=== PATIENT | male | born 1960 | race Caucasian/White ===

== ENCOUNTER 2019-11-01 20:07 | Emergency (ER) | payer OTHER ==
[2019-11-01] MEDS ORDERED: Bacitracin Oint 1 GM U/D Packet TOP ONE (20:50)
[2019-11-01] MEDS ORDERED: Bacitracin Oint 1 GM U/D Packet ONE (20:59)
[2019-11-01] MEDS ORDERED: Diphtheria,Pertussis(Acell),Tetanus Vaccine 0.5 ML Syringe IM ONE (21:20)
--- NOTE | 2019-11-01 21:26 | EDM.PDOC ---
ED HPI GENERAL MEDICAL PROBLEM - General Chief Complaint: Skin Complaint Stated Complaint: Fish hook in thumb Time Seen by Provider: 11/01/19 20:45 Source of Information: Reports: Patient, RN, RN Notes Reviewed History Limitations: Reports: No Limitations - History of Present Illness INITIAL COMMENTS - FREE TEXT/NARRATIVE: Prior to arrival patient pushed his fishhook through his distal aspect of his left thumb. Patient did trim away the lure and attempt to try to remove the hook himself. He was unsuccessful. Patient does not recall last tetanus shot. Onset: Today, Sudden Onset Date: 11/01/19 Onset Time: 19:30 Location: Reports: Upper Extremity, Left (Left thumb) Quality: Reports: Ache, Throbbing Severity: Mild Improves with: Reports: None Worsens with: Reports: Movement Context: Reports: Trauma Associated Symptoms: Reports: No Other Symptoms Treatments [employer]: Reports: Other (see below) (Attempted removal) Left Finger-Thumb Pain Score (Numeric/FACES): 3 - Related Data Allergies Allergy/AdvReac Type Severity Reaction Status Date / Time No Known Allergies Allergy Verified 11/01/19 20:33 Home Meds: Home Meds lisinopriL [Lisinopril] 20 mg PO DAILY 11/01/19 [History] Past Medical History Cardiovascular History: Reports: Hypertension - Past Surgical History HEENT Surgical History: Reports: BASIA Social & Family History - Tobacco Use Smoking Status *Q: Current Some Day Smoker Years of Tobacco use: 40 Packs/Tins Daily: 0 Used Tobacco, but Quit: No Second Hand Smoke Exposure: Yes - Caffeine Use Caffeine Use: Reports: Coffee - Alcohol Use Days Per Week of Alcohol Use: 2 Number of Drinks Per Day: 4 Total Drinks Per Week: 8 - Recreational Drug Use Recreational Drug Use: No ED ROS GENERAL - Review of Systems Review Of Systems: Comprehensive ROS is negative, except as noted in HPI. ED EXAM, SKIN/RASH Exam: See Below Exam Limited By: No Limitations General Appearance: Alert, WD/WN, No Apparent Distress Head: Atraumatic, Normocephalic Neck: Normal Inspection, Supple Respiratory/Chest: No Respiratory Distress, Lungs Clear Cardiovascular: Normal Peripheral Pulses, Regular Rate, Rhythm Extremities: Normal Range of Motion, No Pedal Edema, Normal Capillary Refill, Redness Neurological: Alert, Oriented, CN II-XII Intact Psychiatric: Normal Affect, Normal Mood Skin: Warm, Dry, Normal Color, Wound/Incision (Iva left thumb distal aspect of pad) Location, Skin: Upper Extremity, Left Characteristics: Other (Puncture) Lymphatic: No Adenopathy ED SKIN PROCEDURES - Laceration/Wound Repair Left Digit - 1st (Thumb) Appearance: Superficial Anesthetic Type: Local Local Anesthesia - Lidocaine (Xylocaine): 1% Plain Local Anesthetic Volume: 2cc Skin Prep: Chlorhexidine (Hibiciens) Exploration/Debridement/Repair: Foreign Material Removed Closed with: Other (Left open to air) Lac/Wound length In cm: 0 - Foreign Body Removal Consent Obtained:: Patient Performing Doctor:: Ivanna Baldwin Anesthesia Type: Local Findings:: Removal of single barbed fishhook Complications:: No Course - Vital Signs Last Recorded V/S: Last Vital Signs Temp 36.2 C 11/01/19 20:40 Pulse 80 11/01/19 20:40 Resp 16 11/01/19 20:40 BP 155/102 H 11/01/19 20:40 Pulse Ox 97 11/01/19 20:40 - Orders/Labs/Meds Orders: Active Orders 24 hr Category Date Time Status Vaccines to be Administered [RC] PER UNIT ROUTINE Care 11/01/19 21:21 Active Meds: Medications Discontinued Medications Generic Name Dose Route Start Last Admin Trade Name Saray PRN Reason Stop Dose Admin Bacitracin 1 dose 11/01/19 20:50 11/01/19 21:00 Bacitracin Oint 1 Gm TOP 11/01/19 20:51 1 dose ONETIME ONE Administration Diphtheria/Tetanus/Acell Pertussis 0.5 ml 11/01/19 21:20 11/01/19 21:32 Boostrix IM 11/01/19 21:21 0.5 ml .ONCE ONE Administration Lidocaine HCl 5 ml 11/01/19 20:50 11/01/19 21:01 Xylocaine-Mpf 1% INJECT 11/01/19 20:51 5 ml ONETIME ONE Administration - Re-Assessments/Exams Free Text/Narrative Re-Assessment/Exam: 11/01/19 21:30 Iva removed without difficulty tetanus shot provided. Patient tolerated procedure well. CMS intact distal to insertion point of removed fishhook. Patient instructed to report signs or symptoms of infection. Patient to keep area clean and dry for the next couple of days to allow puncture sites to heal. Departure - Departure Time of Disposition: 21:50 Disposition: Home, Self-Care 01 Clinical Impression: Fish hook injury of finger - Discharge Information *PRESCRIPTION DRUG MONITORING PROGRAM REVIEWED*: Not Applicable *COPY OF PRESCRIPTION DRUG MONITORING REPORT IN PATIENT DANGELO: Not Applicable Instructions: Puncture Wound, VIS, DTaP (Diphtheria, Tetanus, Pertussis) Vaccine - CDC (05/08/2019) Referrals: PCP,None [Primary Care Provider] - Forms: ED Department Discharge Additional Instructions: Keep area clean and dry for next 24 hours. Care Plan Goals: Watch for signs and symptoms of infection report if any are noted. Otherwise keep area clean and dry for the next 24 hours and use Sepsis Event Note (ED) - Evaluation Sepsis Screening Result: No Definite Risk - Focused Exam Vital Signs: Vital Signs Temp Pulse Resp BP Pulse Ox 11/01/19 20:40 36.2 C 80 16 155/102 H 97 - Problem List & Annotations (1) Fish hook injury of finger SNOMED Code(s): 25119604 Code(s): S69.90XA - UNSP INJURY OF UNSP WRIST, HAND AND FINGER(S), INIT ENCNTR Status: Acute Current Visit: Yes (2) Tetanus toxoid vaccination administered at current visit SNOMED Code(s): 152873213, 648807854 Code(s): Z23 - ENCOUNTER FOR IMMUNIZATION Status: Acute Current Visit: Yes - My Orders Last 24 Hours: My Active Orders 11/01/19 21:21 Vaccines to be Administered [RC] PER UNIT ROUTINE - Assessment/Plan Last 24 Hours: My Active Orders 11/01/19 21:21 Vaccines to be Administered [RC] PER UNIT ROUTINE Assessment:: Iva, puncture wound Plan: Keep area covered for the next 24 hours, tetanus shot provided
[2019-11-01] MEDS ORDERED: Diphtheria,Pertussis(Acell),Tetanus Vaccine 0.5 ML Syringe ONE (21:30)
== END 2019-11-01 21:56 | disposition home or self-care (01) ==
LOC: JP.ED 20:07
DX: S60.352A Superficial foreign body of left thumb, initial encounter (principal); I10 Essential (primary) hypertension; F17.210 Nicotine dependence, cigarettes, uncomplicated; Z79.899 Other long term (current) drug therapy; W45.8XXA Other foreign body or object entering through skin, initial encounter
CPT/HCPCS: 90471; 99283; J2001